=== PATIENT | female | born 1990 | race Caucasian/White ===

== ENCOUNTER 2022-10-30 03:08 | Inpatient (IN) | payer BC ==
[~2022-10-30] VITALS: Ht 167.6 cm; Wt 105.2 kg
[2022-10-30 22:15] VITALS: BP_SYST 114
[2022-10-30] MEDS ORDERED: OXYTOCIN/0.9 % SODIUM CHLORIDE 1,000 ML IV SCH (22:15)
[2022-10-30] MEDS ORDERED: NALBUPHINE HCL 10 MG/ML AMP IVP PRN (22:15)
[2022-10-30] MEDS ORDERED: DINOPROSTONE 10 MG SUPP VG ONE (22:15)
[2022-10-30] MEDS ORDERED: TERBUTALINE SULFATE 1 MG/ML VIAL SUBCUT ONE (22:15)
[2022-10-30 22:29] LABS: BASOPHILS # (AUTO) 0.1 K/uL (0.0-0.2); BASOPHILS % (AUTO) 0.7 % (0.0-2.0); EOSINOPHILS # (AUTO) 0.2 K/uL (0.0-0.4); EOSINOPHILS % (AUTO) 1.4 % (0.0-4.0); HEMATOCRIT 33.2 % (36-48); HEMOGLOBIN 11.2 g/dL (12.0-16.0); LYMPHOCYTES # (AUTO) 2.4 K/uL (1.0-5.5); LYMPHOCYTES % (AUTO) 19.2 % (20.5-51.5); MEAN CORPUSCULAR HEMOGLOBIN 27 pg (27-31); MEAN CORPUSCULAR HGB CONC 34 % (32-36); MEAN CORPUSCULAR VOLUME 81 fL (79.0-98.0); MONOCYTES # (AUTO) 0.9 K/uL (0.0-1.0); MONOCYTES % (AUTO) 6.9 % (1.7-9.3); NEUTROPHILS # (AUTO) 8.9 K/uL (1.8-7.7); NEUTROPHILS % (AUTO) 71.8 % (40.0-70.0); PLATELET COUNT (AUTO) 227 K/uL (130-430); RED CELL DISTRIBUTION WIDTH 15.2 % (9.0-15.0); WHITE BLOOD COUNT (AUTO) 12.4 K/uL (4.8-10.8)
[2022-10-31] MEDS ORDERED: NALOXONE HCL 0.4 MG/ML AMP (NARCAN) IVP PRN (11:15)
[2022-10-31] MEDS ORDERED: HYDROmorphone 1 MG/ML INJ. CARTRIDGE IM PRN (11:15)
[2022-10-31] MEDS ORDERED: HYDROmorphone 1 MG/ML INJ. CARTRIDGE ONE (11:18)
[2022-10-31] MEDS: LR 1,000 ML IV SCH ×3 (15:11→21:37)
[2022-10-31] MEDS ORDERED: LR 500 ML IV ONE (20:45)
[2022-10-31] MEDS ORDERED: FENT2mCg/mL-ROPIVA0.2%/NS EPID 200 ML EP SCH (20:45)
[2022-10-31] MEDS ORDERED: ROPIVACAINE HCL/PF 0.2% 200 ML ONE (20:49)
[2022-10-31] MEDS ORDERED: fentaNYL CITRATE/PF 100 MCG/2 ML AMP ONE (20:49)
[2022-11-01] MEDS ORDERED: CEFAZOLIN 2 GM IVPB PREMIX 50 ML IV ONE (03:15)
[2022-11-01 03:49] LABS: BILIRUBIN,URINE 1+ (NEGATIVE); BLOOD, URINE 1+ (NEGATIVE); CLARITY/URINE SL CLOUDY (CLEAR); COLOR,URINE ORANGE (YELLOW); GLUCOSE,URINE NEGATIVE (NEGATIVE); KETONES,URINE 3+ (NEGATIVE); LEUKOCYTE ESTERASE ,URINE NEGATIVE (NEGATIVE); NITRITE, URINE NEGATIVE (NEGATIVE); PROTEIN URINE TRACE (NEGATIVE); UROBILINOGEN,URINE 0.2 (0.2-1.0)
[2022-11-01 04:01] LABS: BACTERIA,URINE RARE /HPF (None Seen); RBC,URINE 0-3 /HPF (0-3)
[2022-11-01] MEDS: LR 1,000 ML IV SCH (06:21)
[2022-11-01] MEDS ORDERED: BUPIVACAINE /PF 0.5% 30 ML VIAL ONE (07:59)
[2022-11-01] MEDS ORDERED: WATER FOR IRRIGATION,STERILE 1,000 ML IRRIG.SOLN IR ONE (08:00)
[2022-11-01] MEDS ORDERED: NS IRRIG SOLN 1000 ML IR ONE (08:00)
[2022-11-01] MEDS ORDERED: BUPIVACAINE /DEX PF 0.75% SPINAL 2 ML AMP INJ ONE (08:00)
[2022-11-01] MEDS ORDERED: OXYTOCIN 10 UNIT/ML VIAL ONE (08:00)
[2022-11-01] MEDS ORDERED: LR 1,000 ML IV.SOLN IV ONE (08:00)
[2022-11-01] MEDS ORDERED: MORPHINE SULFATE 10MG/10ML PF AMP ONE (08:00)
[2022-11-01] MEDS ORDERED: METOCLOPRAMIDE HCL 10 MG/2 ML VIAL IVP PRN (08:45)
[2022-11-01] MEDS ORDERED: MORPHINE SULFATE 10MG/10ML PF AMP EP SCH (08:45)
[2022-11-01] MEDS ORDERED: ONDANSETRON HCL 4 MG/2 ML VIAL IVP PRN ×2 (08:45)
[2022-11-01] MEDS ORDERED: NALOXONE HCL 0.4 MG/ML AMP (NARCAN) IVP PRN ×3 (08:45→09:15)
[2022-11-01] MEDS ORDERED: DIPHENHYDRAMINE INJ 50 MG/ML VIAL IVP PRN (08:45)
[2022-11-01] MEDS ORDERED: KETOROLAC TROMETHAMINE 60 MG/2 ML VIAL IM PRN (08:45)
[2022-11-01] MEDS ORDERED: fentaNYL CITRATE/PF 100 MCG/2 ML AMP IVP PRN ×2 (08:45)
[2022-11-01] MEDS ORDERED: NALBUPHINE HCL 10 MG/ML AMP IVP PRN (08:45)
[2022-11-01] MEDS ORDERED: BISACODYL 10 MG/SUPPOSITORY RC PRN (09:15)
[2022-11-01] MEDS ORDERED: OXYCODONE/ACETAMINOPHEN *10*mg/325 mg TABLET PO PRN (09:15)
[2022-11-01] MEDS ORDERED: LR 1,000 ML IV SCH (09:15)
[2022-11-01] MEDS ORDERED: DIPHTH,PERTUSS(ACELL),TET VAC 0.5 ML VIAL (Tdap) I.M. PRN (09:15)
[2022-11-01] MEDS ORDERED: TEMAZEPAM 15 MG CAPSULE PO PRN (09:15)
[2022-11-01] MEDS ORDERED: MEASLES,MUMPS&RUBELLA VACC/PF 12500 UNIT/0.5 ML VIAL SUBQ PRN (09:15)
[2022-11-01] MEDS ORDERED: ANUSOL 1 EA SUPP.RECT (PREPARATION H) RC PRN (09:15)
[2022-11-01] MEDS ORDERED: HYDROcodone/ACETAMIN 5-325 MG TAB (NORCO/ VICODIN) PO PRN (09:15)
[2022-11-01] MEDS ORDERED: RHO(D) IMMUNE GLOBULIN/MALTOSE 1500 UNITS/1.3 ML (WINHRO) IM PRN (09:15)
[2022-11-01] MEDS ORDERED: LANOLIN 7 GM OINT. TP PRN (09:15)
[2022-11-01] MEDS ORDERED: HYDROmorphone 1 MG/ML INJ. CARTRIDGE IVP PRN (09:30)
[2022-11-01] MEDS ORDERED: HYDROmorphone 1 MG/ML INJ. CARTRIDGE ONE (09:37)
[2022-11-01 12:02] VITALS: BP_SYST 121
[2022-11-01] MEDS: OXYTOCIN/0.9 % SODIUM CHLORIDE 1,000 ML IV SCH ×2 (12:39→22:15)
[2022-11-01] MEDS: CEFAZOLIN 1 GM IVPB PREMIX 50 ML IV SCH ×2 (14:33→20:17)
[2022-11-01] MEDS: KETOROLAC TROMETHAMINE 30 MG VIAL IVP SCH ×2 (17:59→23:19)
[2022-11-01] MEDS: SIMETHICONE 80 MG TAB.CHEW PO PRN (20:17)
[2022-11-01] MEDS ORDERED: SENNOSIDES/DOCUSATE SODIUM 1 TAB TABLET(SENOKOT-S) PO SCH (21:00)
[2022-11-01] MEDS ORDERED: OXYTOCIN/0.9 % SODIUM CHLORIDE 1,000 ML IV SCH (22:15)
[2022-11-02] MEDS: CEFAZOLIN 1 GM IVPB PREMIX 50 ML IV SCH (02:36)
[2022-11-02] MEDS: SIMETHICONE 80 MG TAB.CHEW PO PRN ×5 (02:37→21:25)
[2022-11-02] MEDS: KETOROLAC TROMETHAMINE 30 MG VIAL IVP SCH ×2 (06:24→12:30)
[2022-11-02 07:24] LABS: BASOPHILS % (AUTO) 0.3 % (0.0-2.0); EOSINOPHILS # (AUTO) 0.1 K/uL (0.0-0.4); EOSINOPHILS % (AUTO) 0.9 % (0.0-4.0); HEMATOCRIT 27.8 % (36-48); HEMOGLOBIN 9.1 g/dL (12.0-16.0); LYMPHOCYTES # (AUTO) 1.4 K/uL (1.0-5.5); LYMPHOCYTES % (AUTO) 11.1 % (20.5-51.5); MEAN CORPUSCULAR HEMOGLOBIN 27 pg (27-31); MEAN CORPUSCULAR HGB CONC 33 % (32-36); MEAN CORPUSCULAR VOLUME 82 fL (79.0-98.0); NEUTROPHILS # (AUTO) 9.9 K/uL (1.8-7.7); NEUTROPHILS % (AUTO) 79.7 % (40.0-70.0); PLATELET COUNT (AUTO) 182 K/uL (130-430); RED BLOOD CELL COUNT(AUTO) 3.39 MIL/uL (4.2-6.2); RED CELL DISTRIBUTION WIDTH 15.6 % (9.0-15.0); WHITE BLOOD COUNT (AUTO) 12.5 K/uL (4.8-10.8)
[2022-11-02] MEDS: OXYTOCIN/0.9 % SODIUM CHLORIDE 1,000 ML IV SCH (07:50)
[2022-11-02] MEDS: DOCUSATE SODIUM 100 MG CAPSULE PO SCH ×2 (12:29→21:25)
[2022-11-02] MEDS: IBUPROFEN 600 MG TABLET PO SCH (18:00)
[2022-11-02] MEDS: OXYCODONE/ACETAMINOPHEN 5-325 TABLET PO PRN (21:25)
[2022-11-03] MEDS: IBUPROFEN 600 MG TABLET PO SCH ×3 (00:15→12:09)
[2022-11-03] MEDS: SIMETHICONE 80 MG TAB.CHEW PO PRN ×3 (06:31→14:23)
[2022-11-03] MEDS: DOCUSATE SODIUM 100 MG CAPSULE PO SCH (09:20)
[2022-11-03] MEDS: OXYCODONE/ACETAMINOPHEN 5-325 TABLET PO PRN ×2 (09:21→14:23)
[2022-11-03] MEDS ORDERED: PERC10 PO (13:26)
== END 2022-11-03 14:40 | disposition home or self-care (01) | DRG 788 ==
LOC: SPU 21:10
PROVIDERS: ADMIT Specialist; ATTEND Specialist
PROC: 3E0P7VZ Introduction of Hormone into Female Reproductive, Via Natural or Artificial Opening (ICD-10-PCS; 2022-11-01)
PROC: 10D00Z1 Extraction of Products of Conception, Low, Open Approach (ICD-10-PCS; principal; 2022-11-01 08:00)
DX: O48.0 Post-term pregnancy (principal); Z3A.40 40 weeks gestation of pregnancy; O61.9 Failed induction of labor, unspecified; O77.0 Labor and delivery complicated by meconium in amniotic fluid; O62.2 Other uterine inertia; O64.0XX0 Obstructed labor due to incomplete rotation of fetal head, not applicable or unspecified; O69.82X0 Labor and delivery complicated by other cord entanglement, without compression, not applicable or unspecified; Z37.0 Single live birth
CPT/HCPCS: 36415; 81000; 81002; 85025; 86592; 86886; 86900; 86901; 94760; J0690; J1170; J1885; J2274; J2590; J3010; J3490; J7120